=== PATIENT | female | born 2000 | race American Indian/Alaskan Native ===

== ENCOUNTER 2020-12-12 20:43 | Emergency (ER) | payer SELFPAY | END 2020-12-12 22:53 | LOC: ED 20:43 | DX: R11.10 Vomiting, unspecified (principal); R53.1 Weakness; R10.9 Unspecified abdominal pain; Z53.21 Procedure and treatment not carried out due to patient leaving prior to being seen by health care provider ==

== ENCOUNTER 2021-05-01 14:27 | Emergency (ER) | payer SELFPAY ==
--- NOTE | 2021-05-01 14:57 | Emergency Department Report ---
Minor Respiratory - HPI Stated Complaint: FLU SYMPTOMS Time Seen by Provider: 05/01/21 14:52 Minor Respiratory: Yes Rhinorrhea, Yes Sore Throat, Yes Able to Tolerate Fluids, Yes Cough (Light), Yes Fever, No Ear Pain, No Sick Contacts, No Hemoptysis, No Chest Pain, No Shortness of Breath Other History: 20-year-old morbid obese female presents to the emergency room complaining of a 3-day history of chest congestion body aches and headaches with sore throat and slight cough. She does admit to nasal congestion and runny nose. She is not vaccinated. She has been complaining of hot and cold. She has a history depression anxiety and she is currently on Zoloft be Wellbutrin and gabapentin. She has not been Covid tested. ED Review of Systems ROS: Stated complaint: FLU SYMPTOMS Other details as noted in HPI Comment: All other systems reviewed and negative Minor Respiratory Exam - Exam General: Vital signs noted. No distress. Alert and acting appropriately. HEENT: Yes Moist Mucous Membranes, No Pharyngeal Erythema, No Pharyngeal Exudates, No Rhinorrhea, No Conjuctival Injection, No Frontal Tenderness, No Maxillary Tenderness Ear: Neither EAC Discharge Neck: Yes Supple, No Adenopathy Lungs: Yes Good Air Exchange, No Wheezes, No Ronchi, No Stridor, No Cough, No Labored Respirations, No Retractions, No Use of Accessory Muscles, No Other Abnormal Lung Sounds Heart: Yes Regular, No Murmur Abdomen: Yes Normal Bowel Sounds, No Tenderness, No Peritoneal Signs Skin: No Rash, No Edema Neurologic: Alert and oriented, no deficits. Musculoskeletal: Unremarkable. ED Medical Decision Making - Medical Decision Making 20-year-old morbid obese female presents to the emergency room complaining of a 3-day history of chest congestion body aches and headaches with sore throat and slight cough. She does admit to nasal congestion and runny nose. She is not vaccinated. She has been complaining of hot and cold. She has a history depression anxiety and she is currently on Zoloft be Wellbutrin and gabapentin. She has not been Covid tested. Discussed with patient appears that she has a viral infection most likely of Covid. Discussed with patient she needs to get Covid testing. Increase her fluid intake. Quarantine for the next 14 days. And follow-up with her primary care provider. Critical care attestation.: If time is entered above; I have spent that time in minutes in the direct care of this critically ill patient, excluding procedure time. ED Disposition Clinical Impression: Suspected COVID-19 virus infection Disposition: 01 HOME / SELF CARE / HOMELESS Is pt being admited?: No Does the pt Need Aspirin: No Condition: Stable Instructions: Prevent the Spread of COVID-19 if You Are Sick - CDC, COVID-19: How to Protect Yourself and Others - CDC, COVID-19 Frequently Asked Questions Additional Instructions: Your symptoms appear most consistent with a nonspecific viral syndrome. However, given this current pandemic, COVID-19 is in the differential of possibilities. I do recommend outpatient Covid 19 testing. In the meantime, isolate/quarantine yourself and stay away from anyone who is elderly, immunocompromised or chronically ill. You can use ibuprofen every 6-8 hours and Tylenol every 4-8 hours, using the dosing on the back of the bottle, as needed for any fever or body aches. Return to the emergency department with any worsening of your symptoms, development of chest pain or shortness of breath, or with any acute distress. Referrals: [facility] [Provider Group] - 3-5 Days Forms: Work/School Release Form(ED) Time of Disposition: 15:02
[2021-05-01 15:09] VITALS: BP 108/55
== END 2021-05-01 15:38 | disposition home or self-care (01) ==
LOC: ED 14:27
DX: R09.89 Other specified symptoms and signs involving the circulatory and respiratory systems (principal); R51.9 Headache, unspecified; Z20.822 Contact with and (suspected) exposure to COVID-19
CPT/HCPCS: 99281